=== PATIENT | male | born 2000 | race American Indian/Alaskan Native ===

== ENCOUNTER 2019-08-07 22:39 | Emergency (ER) | payer SELFPAY ==
[2019-08-07] MEDS ORDERED: LORazepam 2 MG/ML VIAL IM PRN (22:57)
[2019-08-07] MEDS ORDERED: HALOPERIDOL LACTATE 5 MG/1 ML INJ IM PRN (22:57)
--- NOTE | 2019-08-07 22:58 | Emergency Department Report ---
ED General Adult HPI - General Chief complaint: Psych Stated complaint: ANXIETY AND DEPRESSION Time Seen by Provider: 08/07/19 22:48 Source: patient, EMS ( EMS documentation not available at time of chart dictation ), RN notes reviewed Mode of arrival: Ambulatory Limitations: Other (The patient is intoxicated. The patient is a poor historian. The patient is disorganized.) - History of Present Illness Initial comments: The patient is a 19-year-old gentleman. He is not known to myself previously. He is brought to the hospital by emergency medical services. He has enclosed paperwork with him indicating that he was discharged from [facility] within the past 24 hours, with discharge diagnoses of headache, chest pain, and evaluation for suicidality. Today, the patient presents to the ER with a complaint of "I am a 1014 or 1013." He makes numerous complaints and statements about suicidality, but will not specifically answer whether or not he is actively suicidal. He will not answer questions about overdose. He states that he is homeless, and he does not want to go to a senior care. He also indicates that he has chest pain and pressure. He cannot describe the nature of the symptoms. He indicates multiple times that he does not want to go to a homeless senior care. He apparently consumed alcohol and cocaine earlier on today. He was given Ativan, which resolved his symptoms. At the moment, he is sleeping comfo rtably in his room, and in no acute distress. Patient is a poor historian, erratic, disorganized, intoxicated, and appears to be embellishing and fabricating his history of present illness. Location: chest Quality: other Consistency: other Improves with: other Worsens with: other Associated Symptoms: other - Related Data Home Medications Medication Instructions Recorded Confirmed Last Taken traZODone [Desyrel] 100 mg PO QHS 08/07/19 08/07/19 Unknown Allergies Allergy/AdvReac Type Severity Reaction Status Date / Time No Known Allergies Allergy Unverified 08/07/19 22:54 ED Review of Systems ROS: Stated complaint: ANXIETY AND DEPRESSION Other details as noted in HPI Comment: Patient not able to describe exacerbating or relieving factors. The patient is a poor historian. Cardiovascular: palpitations Neurological: confusion Psychiatric: as per HPI ED Past Medical Hx - Past Medical History Previous Medical History?: Yes Hx Psychiatric Treatment: Yes Additional medical history: cocaine abuse - Surgical History Past Surgical History?: No - Social History Smoking Status: Never Smoker - Medications Home Medications: Home Medications Medication Instructions Recorded Confirmed Last Taken Type traZODone [Desyrel] 100 mg PO QHS 08/07/19 08/07/19 Unknown History ED Physical Exam - General Limitations: Other (Disorganized, intoxicated, will not answer questions openly and honestly) General appearance: alert, appears intoxicated - Head Head exam: Present: atraumatic, normocephalic - Eye Eye exam: Present: normal appearance, EOMI. Absent: nystagmus - ENT ENT exam: Present: normal exam, normal orophraynx, mucous membranes moist, normal external ear exam - Neck Neck exam: Present: normal inspection, full ROM. Absent: tenderness, meningismus - Respiratory Respiratory exam: Present: normal lung sounds bilaterally. Absent: respiratory distress - Cardiovascular Cardiovascular Exam: Present: normal rhythm, tachycardia, normal heart sounds. Absent: systolic murmur, diastolic murmur, rubs, gallop - GI/Abdominal GI/Abdominal exam: Present: soft. Absent: distended, tenderness, guarding, rebound, rigid, pulsatile mass - Rectal Rectal exam: Present: deferred - Extremities Exam Extremities exam: Present: normal inspection, full ROM, other (2+ pulses noted in the bilateral upper and lower extremities. There is no palpable cord. negative Homans sign. Muscular compartments are soft. The pelvis is stable.). Absent: pedal edema, calf tenderness - Back Exam Back exam: Present: normal inspection, full ROM. Absent: tenderness, CVA tenderness (R), CVA tenderness (L), paraspinal tenderness, vertebral tenderness - Neurological Exam Neurological exam: Present: other (The patient is awake. The patient is speaking in full sentences. The patient is smiling when I am talking to him. He is moving 4 extremities. There is no obvious facial droop.) - Psychiatric Psychiatric exam: Present: anxious. Absent: homicidal ideation - Skin Skin exam: Present: warm, dry, intact, normal color. Absent: rash ED Course Vital Signs 08/08/19 08/08/19 08/08/19 00:00 00:35 08:02 Temperature 98.9 F 98.0 F Pulse Rate 115 H 110 H 107 H Respiratory 18 20 Rate Blood Pressure 130/87 156/69 [Right] O2 Sat by Pulse 98 96 Oximetry 08/08/19 08/08/19 08/09/19 20:20 20:55 02:00 Temperature 98.4 F 98.5 F Pulse Rate 97 H 77 Respiratory 18 18 16 Rate Blood Pressure 109/68 121/60 [Right] O2 Sat by Pulse 98 99 99 Oximetry - Reevaluation(s) Reevaluation #1: 08/08/19 01:49 Differential diagnosis, including not limited to: Mood disorder, alcohol intoxication, malingering, secondary gain Assessment and plan: 19-year-old gentleman who presents with alcohol intoxication, making numerous vague remarks about needing to be a 1013, having vague symptoms of suicidality, and indicated that he does not want to go into a homeless senior care. He is placed on ER hold. A psychiatric consultation is requested. Screening laboratory studies are reviewed and appreciated. Given young age, essentially unremarkable EKG, with nonspecific abnormalities, negative troponin, patient very unlikely to experience major adverse cardiac event as per the heart score. In addition, he was seen in another hospital within the past 24 hours, and cleared from a cardiac standpoint. In addition, given the preponderance of evidence, this is very unlikely to be a pulmonary embolism, I find him to be low risk by Wells criteria, and suspect that his tachycardia is likely secondary to anxiety, intoxication, and agitation. His tachycardia is resolved with administration of Ativan. I have advised the patient to not answer questions at this honestly, advised the patient that he would likely be discharged once cleared by psychiatry. At the moment, the patient does not appear to have an immediate medical contraindication to psychiatric admission, evaluation or consultation, and if the psychiatry team feels as I do that he does not meet 1013 criteria or involuntary hold criteria, there is no immediate medical contraindication to discharging the patient to the streets or homeless senior care once he is clinically sober. There is no evidence of trauma, his head and neck exam are unremarkable, and there is no documentation from nursing notes that he had any kind of trauma as well. Reevaluation #2: 08/08/19 02:20 X-ray of the chest is negative for acute disease. Reevaluation #3: 08/09/19 06:14 As expected, patient is cleared from a psychiatry perspective. He has been resting comfortably in this department for many hours without clinical decompensation. He even endorsed to the nurse caring for him this past evening that he is no longer suicidal. He was provided with outpatient psychiatric resources, and homeless resources. He is clinically sober at this time. He does not have an emergent medical or psychiatric condition at this time. ED Medical Decision Making - Lab Data Result diagrams: 08/07/19 23:20 08/07/19 23:20 Vital Signs 08/08/19 08/08/19 00:00 00:35 Temperature 98.9 F Pulse Rate 115 H 110 H Respiratory 18 Rate Blood Pressure 130/87 [Right] O2 Sat by Pulse 98 Oximetry Lab Results 08/07/19 08/07/19 08/07/19 Range/Units 23:20 23:20 23:20 WBC 8.6 (4.5-11.0) K/mm3 RBC 4.87 (3.65-5.03) M/mm3 Hgb 15.3 H (11.8-15.2) gm/dl Hct 44.0 (35.5-45.6) % MCV 90 (84-94) fl MCH 31 (28-32) pg MCHC 35 H (32-34) % RDW 13.6 (13.2-15.2) % Plt Count 335 (140-440) K/mm3 Sodium 135 L (137-145) mmol/L Potassium 3.8 (3.6-5.0) mmol/L Chloride 97.0 L (98-107) mmol/L Carbon Dioxide 21 L (22-30) mmol/L Anion Gap 21 mmol/L BUN 8 L (9-20) mg/dL Creatinine 1.1 (0.8-1.5) mg/dL Estimated GFR > 60 ml/min BUN/Creatinine Ratio 7 % Glucose 94 (75-100) mg/dL Calcium 9.1 (8.4-10.2) mg/dL Magnesium 2.20 (1.7-2.3) mg/dL Total Bilirubin 0.20 (0.1-1.2) mg/dL AST 12 (5-40) units/L ALT 8 (7-56) units/L Alkaline Phosphatase 75 (35-129) units/L Total Creatine Kinase 180 H (55-170) units/L Troponin T (0.00-0.029) ng/mL Total Protein 7.5 (6.3-8.2) g/dL Albumin 4.5 (3.9-5) g/dL Albumin/Globulin Ratio 1.5 % Urine Color (Yellow) Urine Turbidity (Clear) Urine pH (5.0-7.0) Ur Specific [place] (1.003-1.030) Urine Protein (Negative) mg/dL Urine Glucose (UA) (Negative) mg/dL Urine Ketones (Negative) mg/dL Urine Blood (Negative) Urine Nitrite (Negative) Urine Bilirubin (Negative) Urine Urobilinogen (<2.0) mg/dL Ur Leukocyte Esterase (Negative) Urine WBC (Auto) (0.0-6.0) /HPF Urine RBC (Auto) (0.0-6.0) /HPF Salicylates < 0.3 L (2.8-20.0) mg/dL Urine Opiates Screen Urine Methadone Screen Acetaminophen (10.0-30.0) ug/mL Ur Barbiturates Screen Ur Phencyclidine Scrn Ur Amphetamines Screen U Benzodiazepines Scrn Urine Cocaine Screen U Marijuana (THC) Screen Drugs of Abuse Note Plasma/Serum Alcohol (0-0.07) % 08/07/19 08/07/19 08/08/19 Range/Units 23:20 23:20 00:04 WBC (4.5-11.0) K/mm3 RBC (3.65-5.03) M/mm3 Hgb (11.8-15.2) gm/dl Hct (35.5-45.6) % MCV (84-94) fl MCH (28-32) pg MCHC (32-34) % RDW (13.2-15.2) % Plt Count (140-440) K/mm3 Sodium (137-145) mmol/L Potassium (3.6-5.0) mmol/L Chloride (98-107) mmol/L Carbon Dioxide (22-30) mmol/L Anion Gap mmol/L BUN (9-20) mg/dL Creatinine (0.8-1.5) mg/dL Estimated GFR ml/min BUN/Creatinine Ratio % Glucose (75-100) mg/dL Calcium (8.4-10.2) mg/dL Magnesium (1.7-2.3) mg/dL Total Bilirubin (0.1-1.2) mg/dL AST (5-40) units/L ALT (7-56) units/L Alkaline Phosphatase (35-129) units/L Total Creatine Kinase (55-170) units/L Troponin T (0.00-0.029) ng/mL Total Protein (6.3-8.2) g/dL Albumin (3.9-5) g/dL Albumin/Globulin Ratio % Urine Color Colorless (Yellow) Urine Turbidity Clear (Clear) Urine pH 7.0 (5.0-7.0) Ur Specific [place] 1.001 L (1.003-1.030) Urine Protein <15 mg/dl (Negative) mg/dL Urine Glucose (UA) Neg (Negative) mg/dL Urine Ketones Neg (Negative) mg/dL Urine Blood Neg (Negative) Urine Nitrite Neg (Negative) Urine Bilirubin Neg (Negative) Urine Urobilinogen < 2.0 (<2.0) mg/dL Ur Leukocyte Esterase Neg (Negative) Urine WBC (Auto) 0.0 (0.0-6.0) /HPF Urine RBC (Auto) 0.0 (0.0-6.0) /HPF Salicylates (2.8-20.0) mg/dL Urine Opiates Screen Urine Methadone Screen Acetaminophen < 5.0 L (10.0-30.0) ug/mL Ur Barbiturates Screen Ur Phencyclidine Scrn Ur Amphetamines Screen U Benzodiazepines Scrn Urine Cocaine Screen U Marijuana (THC) Screen Drugs of Abuse Note Plasma/Serum Alcohol 0.16 H (0-0.07) % 08/08/19 08/08/19 Range/Units 00:04 23:20 WBC (4.5-11.0) K/mm3 RBC (3.65-5.03) M/mm3 Hgb (11.8-15.2) gm/dl Hct (35.5-45.6) % MCV (84-94) fl MCH (28-32) pg MCHC (32-34) % RDW (13.2-15.2) % Plt Count (140-440) K/mm3 Sodium (137-145) mmol/L Potassium (3.6-5.0) mmol/L Chloride (98-107) mmol/L Carbon Dioxide (22-30) mmol/L Anion Gap mmol/L BUN (9-20) mg/dL Creatinine (0.8-1.5) mg/dL Estimated GFR ml/min BUN/Creatinine Ratio % Glucose (75-100) mg/dL Calcium (8.4-10.2) mg/dL Magnesium (1.7-2.3) mg/dL Total Bilirubin (0.1-1.2) mg/dL AST (5-40) units/L ALT (7-56) units/L Alkaline Phosphatase (35-129) units/L Total Creatine Kinase (55-170) units/L Troponin T < 0.010 (0.00-0.029) ng/mL Total Protein (6.3-8.2) g/dL Albumin (3.9-5) g/dL Albumin/Globulin Ratio % Urine Color (Yellow) Urine Turbidity (Clear) Urine pH (5.0-7.0) Ur Specific [place] (1.003-1.030) Urine Protein (Negative) mg/dL Urine Glucose (UA) (Negative) mg/dL Urine Ketones (Negative) mg/dL Urine Blood (Negative) Urine Nitrite (Negative) Urine Bilirubin (Negative) Urine Urobilinogen (<2.0) mg/dL Ur Leukocyte Esterase (Negative) Urine WBC (Auto) (0.0-6.0) /HPF Urine RBC (Auto) (0.0-6.0) /HPF Salicylates (2.8-20.0) mg/dL Urine Opiates Screen Presumptive negative Urine Methadone Screen Presumptive negative Acetaminophen (10.0-30.0) ug/mL Ur Barbiturates Screen Presumptive negative Ur Phencyclidine Scrn Presumptive negative Ur Amphetamines Screen Presumptive negative U Benzodiazepines Scrn Presumptive negative Urine Cocaine Screen Presumptive negative U Marijuana (THC) Screen Presumptive negative Drugs of Abuse Note Disclamer Plasma/Serum Alcohol (0-0.07) % - EKG Data -: EKG Interpreted by [place] EKG shows normal: sinus rhythm Rate: tachycardia - EKG Data When compared to previous EKG there are: previous EKG unavailable 08/08/19 01:48 Sinus tachycardia, 125 bpm, normal axis, the QTC is 450 ms, there is high left ventricular voltage and motion artifact. The EKG is abnormal, there is no prior for comparison, it is not a STEMI - Radiology Data Radiology results: pending Critical care attestation.: If time is entered above; I have spent that time in minutes in the direct care of this critically ill patient, excluding procedure time. ED Disposition Clinical Impression: Medical clearance for psychiatric admission, Alcohol intoxication, Homelessness, Malingering Disposition: DC-01 TO HOME OR SELFCARE Is pt being admited?: No Does the pt Need Aspirin: No Condition: Stable Additional Instructions: Recommend that patient avoid consumption of alcohol, cocaine and recreational d rugs. Recommend that patient follow-up with outpatient resources that were provided to him, including outpatient psychiatry, and outpatient homeless resources. Please return to the emergency room right away with new, worsened or different symptoms, or symptoms not present on the initial emergency room evaluation. Referrals: TANNER STALLINGS MD [Staff Physician] - 3-5 Days [facility] [Provider Group] - 3-5 Days [facility] [Provider Group] - 3-5 Days
[2019-08-07] MEDS ORDERED: LORazepam 2 MG/ML VIAL IM STA (23:44)
[2019-08-08 00:33] LABS: Hemoglobin 15.3 gm/dl (11.8-15.2); Mean Corpuscular HGB Conc 35 % (32-34); Mean Corpuscular Volume 90 fl (84-94); Platelet Count 335 K/mm3 (140-440); Red Blood Count 4.87 M/mm3 (3.65-5.03); Red Cell Distribution Width 13.6 % (13.2-15.2)
[2019-08-08 00:46] LABS: Alanine Aminotransferase 8 units/L (7-56); Albumin 4.5 g/dL (3.9-5); BUN/Creatinine Ratio 7; Blood Urea Nitrogen 8 mg/dL (9-20); Calcium 9.1 mg/dL (8.4-10.2); Hemolysis Index 30
[2019-08-08 00:50] LABS: Bilirubin,Urine NEG (Negative); Blood,Urine NEG (Negative); Color,Urine Colorless (Yellow); Protein,Urine <15 mg/dL mg/dL (Negative); Urobilinogen,Urine < 2.0 mg/dL (<2.0)
[2019-08-08 00:57] LABS: Amphetamine Screen,Urine PRESUMPTIVE NEGATIVE; Benzodiazepines Screen,Urine PRESUMPTIVE NEGATIVE; Cannabinoid Screen,Urine PRESUMPTIVE NEGATIVE; Cocaine Screen,Urine PRESUMPTIVE NEGATIVE; Methadone Screen,Urine PRESUMPTIVE NEGATIVE; Opiate Screen,Urine PRESUMPTIVE NEGATIVE
--- NOTE | 2019-08-08 02:13 | XRay Report ---
CHEST 1 VIEW INDICATION / CLINICAL INFORMATION: history of chest pain. COMPARISON: None available. FINDINGS: SUPPORT DEVICES: None. HEART / MEDIASTINUM: No significant abnormality. LUNGS / PLEURA: No significant pulmonary or pleural abnormality. No pneumothorax. ADDITIONAL FINDINGS: Mild scoliosis of the thoracic spine, convex to the patient's right. IMPRESSION: 1. No acute cardiopulmonary disease. 2. Mild scoliosis. Signer Name: Ruby Billy MD Signed: 08/08/2019 2:08 AM Workstation Name: [id number]
[2019-08-09 03:16] VITALS: BP 121/60
== END 2019-08-09 06:47 | disposition home or self-care (01) ==
LOC: ED 22:39 → EEVIPCON 22:39 → ED 08-09 06:47
DX: F10.129 Alcohol abuse with intoxication, unspecified (principal); Z59.0 Homelessness; Z76.5 Malingerer [conscious simulation]; F14.10 Cocaine abuse, uncomplicated
CPT/HCPCS: 36415; 71045; 80053; 80307; 81001; 82550; 83735; 84484; 85027; 93005; 93010; 96372; 99285; J2060; 80320; G0480

== ENCOUNTER 2019-08-09 22:44 | Emergency (ER) | payer SELFPAY ==
[2019-08-10 08:29] VITALS: BP 117/81
--- NOTE | 2019-08-10 08:32 | Emergency Department Report ---
ED General Adult HPI - General Chief complaint: Chest Pain Stated complaint: CP Time Seen by Provider: 08/10/19 08:25 Source: patient, RN notes reviewed, old records reviewed Mode of arrival: Ambulatory Limitations: No Limitations - History of Present Illness Initial comments: This is a 19-year-old gentleman. I discharged him yesterday. Please see his medical chart from yesterday for the details of his past history. Apparently, he waited in the waiting room for over 9 hours. He did not leave the premises, as far as we know, and he did not follow-up with outpatient resources that were provided to him. He is still complaining of headache and chest discomfort. He has not made any complaints of homicidality or suicidality. - Related Data Home Medications Medication Instructions Recorded Confirmed Last Taken traZODone [Desyrel] 100 mg PO QHS 08/07/19 08/07/19 Unknown Allergies Allergy/AdvReac Type Severity Reaction Status Date / Time No Known Allergies Allergy Unverified 08/07/19 22:54 ED Review of Systems ROS: Stated complaint: CP Other details as noted in HPI ED Past Medical Hx - Past Medical History Previous Medical History?: Yes Hx Psychiatric Treatment: Yes Additional medical history: cocaine abuse - Surgical History Past Surgical History?: No - Social History Smoking Status: Current Every Day Smoker Substance Use Type: Alcohol, Marijuana - Medications Home Medications: Home Medications Medication Instructions Recorded Confirmed Last Taken Type traZODone [Desyrel] 100 mg PO QHS 08/07/19 08/07/19 Unknown History ED Physical Exam - General Limitations: No Limitations General appearance: alert, in no apparent distress - Head Head exam: Present: atraumatic, normocephalic - Eye Eye exam: Present: normal appearance, EOMI. Absent: nystagmus - ENT ENT exam: Present: normal exam, normal orophraynx, mucous membranes moist, normal external ear exam - Neck Neck exam: Present: normal inspection, full ROM. Absent: tenderness, meningismus - Respiratory Respiratory exam: Present: normal lung sounds bilaterally. Absent: respiratory distress - Cardiovascular Cardiovascular Exam: Present: regular rate, normal rhythm, normal heart sounds. Absent: bradycardia, tachycardia, irregular rhythm, systolic murmur, diastolic murmur, rubs, gallop - GI/Abdominal GI/Abdominal exam: Present: soft, normal bowel sounds. Absent: distended, tenderness, guarding, rebound, rigid, pulsatile mass - Rectal Rectal exam: Present: deferred - Extremities Exam Extremities exam: Present: normal inspection, full ROM, other (2+ pulses noted in the bilateral upper and lower extremities. There is no palpable cord. negative Homans sign. Muscular compartments are soft. The pelvis is stable.). Absent: pedal edema, calf tenderness - Back Exam Back exam: Present: normal inspection, full ROM. Absent: tenderness, CVA tenderness (R), CVA tenderness (L), paraspinal tenderness, vertebral tenderness - Neurological Exam Neurological exam: Present: alert, normal gait, other (There is no facial droop. The tongue is midline. Extraocular movements are intact bilaterally. There is 5 out of 5 strength in bilateral upper and lower extremities. Sensation is intact to light touch bilateral upper and lower extremities. There is a normal gait.). Absent: motor sensory deficit - Psychiatric Psychiatric exam: Present: normal affect, normal mood - Skin Skin exam: Present: warm, dry, intact, normal color. Absent: rash ED Course Vital Signs 08/09/19 08/10/19 08/10/19 23:10 08:27 08:30 Temperature 97.9 F 97.4 F L Pulse Rate 110 H 69 Respiratory 18 16 16 Rate Blood Pressure 126/79 117/81 O2 Sat by Pulse 99 99 Oximetry ED Medical Decision Making - Lab Data Vital Signs 08/09/19 08/10/19 23:10 08:27 Temperature 97.9 F 97.4 F L Pulse Rate 110 H 69 Respiratory 18 16 Rate Blood Pressure 126/79 117/81 O2 Sat by Pulse 99 99 Oximetry - EKG Data -: EKG Interpreted by [place] EKG shows normal: sinus rhythm Rate: normal - EKG Data 08/10/19 08:40 Sinus rhythm, 76 bpm, high left ventricular voltage, normal intervals, normal axis, unremarkable, not a STEMI - Medical Decision Making Differential diagnosis, including but not limited to: Homelessness, malingering Assessment and plan: 19-year-old male who I recently saw and discharged yesterday, apparently waited in the waiting room, in spite of being given resources for outpatient follow-up. The patient is afebrile with reassuring vital signs, walking with a steady gait, and he is clinically sober at this time. He was cleared by both psychiatry within the past few days, and he also was given outpatient resources for homeless shelters. He does not appear to have an emergent medical condition at this time. Critical care attestation.: If time is entered above; I have spent that time in minutes in the direct care of this critically ill patient, excluding procedure time. ED Disposition Clinical Impression: Malingering, Homelessness Disposition: DC-01 TO HOME OR SELFCARE Is pt being admited?: No Does the pt Need Aspirin: No Condition: Stable Additional Instructions: Follow-up with outpatient resources that were provided to the patient. Follow- up with a primary care doctor within the next 2 weeks. Return to the emergency room right away with new, worsened or different symptoms, or symptoms not present on the initial emergency room evaluation. Referrals: RAY DEVLIN MD [Primary Care Provider] - 3-5 Days
== END 2019-08-10 08:45 | disposition home or self-care (01) ==
LOC: ED 22:44
DX: R07.9 Chest pain, unspecified (principal); Z76.5 Malingerer [conscious simulation]; Z59.0 Homelessness
CPT/HCPCS: 93005; 93010; 99282

== ENCOUNTER 2019-09-12 20:38 | Emergency (ER) | payer SELFPAY ==
[2019-09-12 20:55] VITALS: BP 125/66
--- NOTE | 2019-09-12 20:55 | Emergency Department Report ---
ED General Adult HPI - General Chief complaint: Psych Stated complaint: SUICIDAL IDEATIONS Time Seen by Provider: 09/12/19 20:47 PUI?: No Source: patient, EMS ( EMS documentation not available at time of chart dictation ), RN notes reviewed, old records reviewed Mode of arrival: Ambulatory Limitations: No Limitations - History of Present Illness Initial comments: Patient is a 19-year-old gentleman who is known to myself previously. He has a history of alcohol consumption, malingering, secondary gain, and falsifying history. I saw this patient approximately 1 to 1-1/2 months ago, he had been evaluated at [facility], seen for multiple complaints, including headache, chest pain, and nonspecific psychiatric symptoms. He was cleared by their psychiatric team, and subsequently discharged. When I first saw this patient, he was found to be malingering, and fabricating symptoms, suspected for secondary gain. He was also seen by psychiatry, who offer the following recommendations: Television Installer recommending discharge with connection to OP tx and pursuit of free based long-term program, as pt appears to be at baseline and is seeking IP tx for secondary gains of housing. Today, the patient presents to the ER with a vague complaint of suicidality and wanting to harm himself for a month. When further questioned about this, the patient states that he "needs housing." He makes no complaint of physical pain. He makes no complaint of intentional overdose. He is vague as to the exact impetus for his wanting to harm himself, and he perseverates on being transferred to a psychiatric hospital for a hold, and also endorses his need for housing. He does not describe exacerbating or relieving factors, or qualitative nature of his symptoms. There is no complaint of physical pain. -: week(s) - Related Data Home Medications Medication Instructions Recorded Confirmed Last Taken traZODone [Desyrel] 100 mg PO QHS 08/07/19 08/07/19 Unknown Allergies Allergy/AdvReac Type Severity Reaction Status Date / Time No Known Allergies Allergy Unverified 08/07/19 22:54 ED Review of Systems ROS: Stated complaint: SUICIDAL IDEATIONS Other details as noted in HPI Comment: See history of present illness ED Past Medical Hx - Past Medical History Previous Medical History?: Yes Hx Psychiatric Treatment: Yes Additional medical history: cocaine abuse - Surgical History Past Surgical History?: No - Social History Smoking Status: Current Every Day Smoker Substance Use Type: Cocaine - Medications Home Medications: Home Medications Medication Instructions Recorded Confirmed Last Taken Type traZODone [Desyrel] 100 mg PO QHS 08/07/19 08/07/19 Unknown History ED Physical Exam - General Limitations: No Limitations General appearance: alert, in no apparent distress - Head Head exam: Present: atraumatic, normocephalic - Eye Eye exam: Present: normal appearance, EOMI. Absent: nystagmus - ENT ENT exam: Present: normal exam, normal orophraynx, mucous membranes moist, normal external ear exam - Neck Neck exam: Present: normal inspection, full ROM - Respiratory Respiratory exam: Absent: respiratory distress, stridor - Cardiovascular Cardiovascular Exam: Absent: JVD - Rectal Rectal exam: Present: deferred - Extremities Exam Extremities exam: Present: normal inspection, full ROM, other (Moving 4 extremities without difficulty.) - Back Exam Back exam: Present: normal inspection, full ROM - Neurological Exam Neurological exam: Present: alert, other (There is no facial droop. The tongue is midline. The extraocular movements are intact bilaterally. Patient speaks in complete sentences. Moving 4 extremities spontaneously.) - Psychiatric Psychiatric exam: Present: anxious - Skin Skin exam: Present: warm, dry, intact, normal color. Absent: rash ED Course Vital Signs 09/12/19 09/12/19 20:48 21:00 Temperature 98.9 F Pulse Rate 107 H Respiratory 18 18 Rate Blood Pressure 125/66 O2 Sat by Pulse 98 98 Oximetry ED Medical Decision Making - Lab Data Result diagrams: 09/12/19 21:11 09/12/19 21:11 Vital Signs 09/12/19 09/12/19 20:48 21:00 Temperature 98.9 F Pulse Rate 107 H Respiratory 18 18 Rate Blood Pressure 125/66 O2 Sat by Pulse 98 98 Oximetry - Medical Decision Making Differential diagnosis, including but not limited to: Malingering, secondary gain, alcohol use, homelessness Assessment and plan: 19-year-old gentleman whom I evaluated in the past, presenting with a primary complaint of vague suicidality, and need for housing. When I evaluated the patient, I told him that we would need to be careful, as there were a number of suspected patients with possible coronavirus in the emergency department. The patient then indicated that "I do not want to get that, I just need to have housing." The patient appears to have a recurrent presentation of articulating symptoms for probable secondary gain, such as housing. His presentation today appears to be consistent with prior presentations. Given that this is likely secondary gain and malingering, as patient primarily indicates that he wants to have housing, does not meet criteria for 1013 hold or involuntary psychiatric hold. He can follow-up electively as an outpatient with psychiatry if he so desires. The patient appears to be malingering and seeking secondary gain once again, he is currently resting comfortably in his stretcher, and in no acute distress. Screening laboratory studies do not demonstrate any emergent toxicologic insult, the patient can be given outpatient resources to follow-up. Critical care attestation.: If time is entered above; I have spent that time in minutes in the direct care of this critically ill patient, excluding procedure time. ED Disposition Clinical Impression: General medical exam Disposition: [id number] TO HOME OR SELFCARE Is pt being admited?: No Does the pt Need Aspirin: No Condition: Stable Additional Instructions: Recommend that patient avoid alcohol consumption and consumption of recreational drugs. Patient may follow-up with any of the listed outpatient psychiatric facilities at his convenience. Recommend that patient follow-up with an outpatient medical doctor within the next 4 to 6 weeks. Wash hands very thoroughly with soap and water, and do not touch hands to face, eyes, mouth. Return to the emergency room right away with new, worsened or different symptoms, or symptoms not present on the initial emergency room evaluation. [facility] in the [place], [place] Address: [address] [place] [address] , [place] [address] [facility] in [place], [place] Address: [address] [place] [address] Referrals: TANNER STALLINGS MD [Staff Physician] - 3-5 Days [facility] [Provider Group] - 3-5 Days [facility] [Provider Group] - 3-5 Days [facility] [Outside] - 3-5 Days
[2019-09-12 21:30] LABS: Hematocrit 48.6 % (35.5-45.6); Hemoglobin 16.3 gm/dl (11.8-15.2)
[2019-09-12 21:40] LABS: BUN/Creatinine Ratio 5; Blood Urea Nitrogen 6 mg/dL (9-20); Calcium 9.6 mg/dL (8.4-10.2); Hemolysis Index 13
== END 2019-09-13 01:05 | disposition home or self-care (01) ==
LOC: ED 20:38 → EEVIPCON 20:38 → ED 09-13 01:05
DX: R45.851 Suicidal ideations (principal); F17.200 Nicotine dependence, unspecified, uncomplicated; F14.10 Cocaine abuse, uncomplicated; Z00.01 Encounter for general adult medical examination with abnormal findings; Z79.899 Other long term (current) drug therapy
CPT/HCPCS: 36415; 80048; 80320; 82550; 83735; 85014; 85018; 85049; G0480